=== PATIENT | male | born 1960 | race Caucasian/White ===

== ENCOUNTER 2023-02-02 06:15 | Day surgery (SDC) | payer BC, SELFPAY ==
[2023-02-02] VITALS (14 sets, daily range): BP systolic 113–140; BP diastolic 66–86; PULSE 54–75; RESP 12–16; TEMP 36.2–36.7; O2SAT 92–96; BMI 28.1
[2023-02-02] MEDS: LACTATED RINGERS 1000 ML 1,000 ML 100 ML IV (06:35)
[2023-02-02] MEDS: SODIUM CHLORIDE 0.9 % (FLUSH) 10 ML SYRINGE IVF (07:08)
[2023-02-02] MEDS: CEFAZOLIN 2 GM INJ IVP (07:44)
[2023-02-02] MEDS: HEPARIN 5,000 UNIT/0.5 ML INJ 5000 UNIT SUBCUT (07:45)
--- NOTE | 2023-02-02 08:35 | W.ANESCHARGE ---
Anesthesia Charges Start Date/Time Anesthesia Start Date: 02/02/23 Anesthesia Start Time: 07:33 Stop Date/Time Anesthesia Stop Date: 02/02/23 Anesthesia Stop Time: 09:10
[2023-02-02] MEDS: BUPIVACAINE 0.25% 30 ML INJECTION (08:38)
--- NOTE | 2023-02-02 09:10 | W.ANESCHARGE ---
Anesthesia Charges Start Date/Time Anesthesia Start Date: 02/02/23 Anesthesia Start Time: 07:33 Stop Date/Time Anesthesia Stop Date: 02/02/23 Anesthesia Stop Time: 09:10
--- NOTE | 2023-02-02 09:21 | PM.GSPRC ---
Operative Note Pre-op diagnosis: Incisional hernia Post-op diagnosis: Same Type of Procedure: Open incisional hernia repair with mesh, 2 cm Indications: The patient is a 62 year old male who has an umbilical hernia which occurred at the port site from a prior laparoscopic inguinal hernia repair. This is been present for approximately 10 years. This is becoming more uncomfortable for him and he would like to have this repaired. After discussion of options he agreed to proceed Procedure Description: After discussing the risks and benefits of the procedure, the patient signed informed consent.? The operative site was marked and the patient was brought to the operating room and placed on the operating table in supine position.? Care was taken to pad the patient's pressure points.?? The patient was then intubated by anesthesia.?? The operative site was then prepped and draped in the usual sterile fashion.? A time-out was then performed. Of note, the patient has a history of DVT after surgery and so perioperative heparin was administered along with mechanical prophylaxis in the form of Laci hose and SCDs. A curvilinear incision was made inferior to the umbilicus. Dissection was carried down into the subcutaneous tissue using cautery. The hernia had reduced on its own and the sac was encountered and care was taken to not enter it. Dissection was taken down to the fascia, and the umbilical skin was carefully dissected off of the hernia sac. The hernia sac was moderately sized and redundant and so this was opened and the redundant tissue excised and discarded. As mentioned, the hernia had reduced on its own. The peritoneum was examined. There were no adhesions of bowel or omentum to the peritoneum surrounding the hernia. I then created a preperitoneal space by carefully dissecting the peritoneum away from the fascial edge. This was done with a combination of blunt dissection and dissection with cautery. Once the pocket had been created, I sewed the hernia defect with a running 3-0 Vicryl suture. The hernia opening was 2 cm. For this reason I made the decision to use mesh. A piece of medium Ventralex ST mesh was obtained and placed into the pre peritoneal space. It laid flat. This was secured into place using 2 0 PDS interrupted sutures. The tails were then trimmed and the fascial opening was closed with 0 Nurolon suture in a [id number] fashion. The umbilical skin was redundant and so the excess was excised using a knife. The umbilicus was then reapproximated to the fascia. The skin was then closed with running absorbable suture. A sterile dressing was then applied. The patient was then woken and transported to the recovery area in stable condition. ? The patient tolerated the procedure well. Findings: 2 cm incisional hernia. Implants: Ventralex ST mesh Anesthesia: GETA Surgeon: Nelly Goodman MD Estimated blood loss (mL): 5 Condition: stable Disposition: PACU
== END 2023-02-02 11:00 | disposition home or self-care (01) ==
PROVIDERS: PCP Family Medicine; Visit Provider Surgery
PROC: (CPT 49591; principal; 2023-02-02 07:30)
DX: K43.2 Incisional hernia without obstruction or gangrene (principal)
CPT/HCPCS: 49591; 830; C1781; J0330; J0665; J0690; J1100; J1644; J1885; J2405; J2704; J3010; J7120

== ENCOUNTER 2024-10-31 06:19 | Emergency (ER) | payer BC, SELFPAY ==
[2024-10-31] VITALS (8 sets, daily range): BP systolic 123–150; BP diastolic 84–94; PULSE 62–93; RESP 16–18; TEMP 36.8; O2SAT 93–96; BMI 25.1
--- OUTSIDE RECORDS SUMMARY | 2024-10-31 06:22 | XMS_ITS | Clinical Summary ---
Author Organization [facility] Address [facility] [place] [address] Care Team Providers Care Drum Operator Name Role Phone Maxine Mariano DO Primary Care Provider [phone] Allergies No known active allergies Medications aspirin (Aspirin EC) 81 mg enteric coated tabletIndication s:Acute superficial venous thrombosis of right lower extremity Take 1 Tablet (81 mg) by mouth once daily with a meal. 0 1 Active Graduated Compression StockingsIndicat ions:Acute superficial venous thrombosis of right lower extremity 20-30 mmHg thigh high compression stockings. Wear as directed. 3 Packet 3 1 Active Graduated Compression StockingsIndicat ions:Acute superficial venous thrombosis of right lower extremity 20-30 mmHg knee high compression stockings. Wear as directed. 3 Packet 3 1 Active triamcinolone 0.5% (ARISTOCORT) 0.5 % creamIndications :Chronic eczema Apply topically to affected area(s) three times daily. 15 g 4 Active lisinopriL (PRINIVIL; ZESTRIL) 5 mg tabletIndication s:HTN (hypertension) Take 1 Tablet (5 mg) by mouth once daily. 90 Tablet 3 4 Active benzonatate (TESSALON) 200 mg capsuleIndicatio ns:Acute cough Take 1 Capsule (200 mg) by mouth 3 times daily if needed for Cough. 21 Capsule 5 Active albuterol HFA (PRO-AIR; VENTOLIN; PROVENTIL) 90 mcg/actuation inhalerIndicatio ns:Wheezing,Acut e cough Inhale 1-2 Puffs by mouth every 4 hours if needed for Shortness Of Breath or Wheezing. 3 Each 3 5 Active rosuvastatin (CRESTOR) 20 mg tabletIndication s:More than 50 percent stenosis of left internal carotid artery Take 1 Tablet (20 mg) by mouth at bedtime. 90 Tablet 3 5 Active Active Problems Problem Noted Date Diagnosed Date Primary hypertension 01/13/2023 Overview (01/13/2023): December 2022: On lisinopril since Apr 2022. Acute deep vein thrombosis ( DVT) of distal vein of lower extremity 01/13/2023 Overview (01/18/2023): At time of hernia Surgery for DVT. Then later 2020 thrombophlebitis. December 2022: Basic hypercoagulation work up tests are negative. Varicose veins of bilateral lower extremities with other complications 01/13/2023 Encounters Date Type Department Care Team Description 09/11/2024 3:00 PM CDT Office Visit [facility] at [address] [phone] Neeta Person MD Consult (More than 50 percent stenosis of left internal carotid artery) 09/11/2024 Travel from Last 3 Months Family History Relation Name Status Comments Brother 1 Alive Brother 2 Alive Father Mother Sister 1 Alive Sister 2 Alive Social History Tobacco Use Types Packs/Day Years Used Date Smoking Tobacco: Former Cigarettes Q uit: 1999 Smokeless Tobacco: Never Tobacco Cessation:Counseling Given: Yes Alcohol Use Standard Drinks/Week Comments Yes 0 (1 standard drink = 0.6 oz pur e alcohol) rarely PHQ-2 Answer Date Recorded PHQ-2 TOTAL SCORE 0 01/13/2023 Financial Resource Strain Answer Date R ecorded Difficulty of Paying Living Expenses Not on file 06/19/2021 Difficulty of Paying Living Expenses Not on file 06/19/2021 Sex and Gender Information Value Date Recorded Sex Assigned at Not on file 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 Gender Identity Not on file Sexual Orientation Not on file Obstetrics History Last Filed Vital Signs Vital Sign Reading Time Taken Comments Blood Pressure 116/74 09/11/2024 2:46 PM CDT Pulse 80 09/11/2024 2:46 PM CDT Temperature 37.2 C (98.9 F) 07/18/2024 10:14 AM CHINA DECORATOR Respiratory Rate 16 10/18/2014 9:19 AM CDT Oxygen Saturation 97% 09/11/2024 2:46 PM CDT Inhaled Oxygen Concentration - - Weight 85.4 kg (188 lb 3.2 oz) 09/11/2024 2:46 P M CDT Height 172.7 cm (5' 8) 11/23/2023 9:04 AM CDT Body Mass Index 28.62 11/23/2023 9:04 AM CDT Plan of Treatment Health Maintenance Due Date Last Done Comments Tdap 10/24/1970 Depression screening for age 12+ 1971 HIV for age 15-65 10/24/1974 Hepatitis C screening for ag e 18-79 10/24/1977 Tetanus booster 1979 Colonoscopy through age 75 10/24/2004 Pneumococcal series for age 50+ (1 of 1 - PCV) 10/24/2009 Zoster (shingles) series for age 50+ (1 of 2) 10/24/2009 RSV vaccine for adults or (1 - Risk 60-74 years 1-dose series) 2019 COVID-19 vaccine series ( - 2023- season) 2024 AAA screening age 65-74 10/24/2024 BMI (ht and wt on same day) for age 18+ 11/22/2024 11/23/2023, 10/26/2023, 08/11/2023, Additional history exists Influenza Vaccine (Season Ended) 2025 Lipids for age 45-75 04/28/2027 04/28/2022 Goals Goal Patient Goal Type Associated Problems Recent Progress Patient-Stated? Author BLOOD PRESSURE - Maintains BP less than 140/90 Blood Pressure No Allie Taveras LPN Procedures Procedure Name Priority Date/Time Associated Diagnosis Comments LIPID PANEL W REFLEX MEASURED LDL Routine 04/28/2022 1:49 PM CHINA DECORATOR Lipid screening from Last 3 Months or Most Recently Relevant to Health Maintenance Results * (ABNORMAL) LIPID PANEL W REFLEX MEASURED LDL (04/28/2022 1:49 PM CHINA DECORATOR) CHOLESTEROL,TOTAL 207(H) 100 - 199 mg/dL 04/30/2022 8:31 PM CHINA DECORATOR [facility] TRIGLYCERIDES 144 <150 mg/dL 04/30/2022 8:31 PM CHINA DECORATOR [facility] HDL CHOLESTEROL 47 >40 mg/dL 8:31 PM CHINA DECORATOR [facility] NON-HDL CHOLESTEROL 160(H) <145 mg/dl 04/30/2022 8:31 PM CHINA DECORATOR [facility] CHOL/HDL RATIO 4.40 <4.50 04/30/2022 8:31 PM CHINA DECORATOR [facility] LDL CHOLESTEROL 131(H) <=130 mg/dL 04/30/2022 8:31 PM CHINA DECORATOR [facility] VLDL CHOLESTEROL 29 <=30 mg/dL 04/30/2022 8:31 PM CHINA DECORATOR [facility] PROVIDER ORDERED STATUS RANDOM 04/30/2022 8:31 PM CHINA DECORATOR [facility] Blood BLOOD SPECIMEN / Unknown Venipuncture / Unknown 04/28/2022 1:49 PM CHINA DECORATOR 04/28/2022 1:50 PM CHINA DECORATOR us Maxine Mariano DO CHEMISTRY Final Result [facility] [address] [place] [address], [place] from Last 3 Months or Most Recently Relevant to Health Maintenance Insurance [employer] OF NON-IN-ITS Advance Directives Documents on File Type Date Recorded Patient Parking Ramp Attendant Expl anation Healthcare Directive 08/28/2024 025 Care Teams Drum Operator Relationship Specialty Start Date End Date Maxine Mariano DO [address] [place] [address] PCP - General Family Practice 06/27/24
--- NOTE | 2024-10-31 06:44 | CRLHL7_ITS ---
For Patients: As a result of the Cures Act, medical imaging exams and procedure reports are released immediately into your electronic medical record. You may view this report before your referring provider. If you have questions, please contact your health care provider. INDICATION: Chest pain, not otherwise described. COMPARISON: None available. TECHNIQUE: PA and lateralAP and lateral views of the chest. FINDINGS: Medical Devices: None. Lung Volumes: Adequate inspiration. No significant atelectasis. Lungs: Clear lungs. Pleura and Pleural spaces: No significant pleural effusion. No pneumothorax. Mediastinum: Normal cardiomediastinal silhouette. Bony Thorax and Soft Tissues: Note is made of diffuse osteopenia of the spine and chronic appearing moderate to severe compression deformities of the superior endplates of 3 contiguous midthoracic vertebral bodies on the lateral view. IMPRESSION: No acute findings to explain the clinical history. Note is made of diffuse osteopenia of the spine and chronic appearing moderate to severe compression deformities of the superior endplates of 3 contiguous midthoracic vertebral bodies on the lateral view. Dictated by Mani Jaramillo MD @ 10/31/2024 7:13:22 AM (Electronically Signed)
--- NOTE | 2024-10-31 06:49 | ED.CHESTPAIN ---
HPI - Chest Pain General Date Seen: 10/31/24 <Bartolo Harding MD - Last Filed: 11/01/24 20:23> Chief Complaint: Unspecified Complaint, Adult <Bartolo Harding MD - Last Filed: 11/01/24 20:23> Stated Complaint: Left side pain <Bartolo Harding MD - Last Filed: 11/01/24 20:23> Time Seen by Provider: 10/31/24 06:35 <Bartolo Harding MD - Last Filed: 11/01/24 20:23> Source: patient <Bartolo Harding MD - Last Filed: 11/01/24 20:23> Mode of arrival: ambulatory <Bartolo Harding MD - Last Filed: 11/01/24 20:23> Limitations: no limitations <Bartolo Harding MD - Last Filed: 11/01/24 20:23> History of Present Illness HPI narrative: Patient is a 64-year-old male who comes in with several weeks of intermittent left upper quadrant abdominal pain and chest pain. His history is quite vague. He does not believe the pain has anything to do with meals or acid reflux. It does not necessarily come on with exertion or resolve with rest. He has not found anything that makes the pain any better. He has not found anything that makes the pain any worse. It does not cause nausea, diaphoresis, dyspnea. His risk factors for coronary artery disease include gender, hypertension, hyperlipidemia. He does have some carotid disease and has seen a vascular doctor within the last two months. He denies a history of exertional chest pain. He does a physical job working at [employer]. No pain with deep inspiration. Pain is never kept him from doing anything. He has never had a stress test. <Bartolo Harding MD - Last Filed: 11/01/24 20:23> Related Data Home Medications: Home Medications ?Medication ?Instructions ?Recorded ?Confirmed aspirin 81 mg capsule 81 mg PO DAILY 02/01/23 10/31/24 lisinopril 5 mg tablet 5 mg feeding tube QDAY 02/01/23 10/31/24 triamcinolone acetonide 0.1 % 1 applic topical TID 02/01/23 02/02/23 lotion rosuvastatin 20 mg tablet 20 mg PO QPM 10/31/24 10/31/24 Previous Rx's ?Medication ?Instructions ?Recorded hydrocodone 5 mg-acetaminophen 325 1 - 2 tab PO Q6H PRN Pain #20 tabs 02/02/23 mg tablet <Bartolo Harding MD - Last Filed: 11/01/24 20:23> Allergies/Adverse Reactions: Allergies Allergy/AdvReac Type Severity Reaction Status Date / Time No Known Drug Allergies Allergy Verified 10/31/24 06:26 <Bartolo Harding MD - Last Filed: 11/01/24 20:23> Review of Systems Narrative Apparently is eye doctor saw something in his eye that led to a evaluation of his carotids and visit with vascular surgeon. No intervention was done and a six-month follow-up is planned. Review of systems is outlined above otherwise noted to be negative. <Bartolo Harding MD - Last Filed: 11/01/24 20:23> [facility] Medical History: Medical History (Updated 10/31/24 @ 08:59 by Yassine Seymour MD) Varicose veins of bilateral lower extremities with pain ?I83.813 - Varicose veins of bilateral lower extremities with pain (ICD-10) HTN (hypertension) ?I10 - Essential (primary) hypertension (ICD-10) DVT (deep venous thrombosis) ?I82.409 - Acute embolism and thrombosis of unspecified deep veins of unspecified lower extremity (ICD-10) <Bartolo Harding MD - Last Filed: 11/01/24 20:23> Social History: Social History Smoking Status: Never smoker Do you use any of these nicotine containing products: None Second hand tobacco smoke exposure: No How often do you have a drink containing alcohol: never How often do you have six or more drinks on one occasion: Never AUDIT-C Alcohol total score: 0 Non-prescribed substance use: denies use Caffeine: No <Bartolo Harding MD - Last Filed: 11/01/24 20:23> Exam Narrative Exam Narrative: Vitals noted. HEENT: Conjunctiva clear. Tympanic membranes are pearly white bilaterally. Posterior pharynx is clear without erythema or exudate. Neck is supple without adenopathy, thyromegaly, carotid bruit. Lungs: Clear to auscultation in all [place]. No wheezes, rales, rhonchi. Heart: Regular rate and rhythm without murmur. No chest wall tenderness. Abdomen: Soft with very mild epigastric tenderness. No guarding, rigidity, rebound. Bowel sounds are normal. No palpable masses. Extremities: No cyanosis or edema. Good distal pulses. Skin: No abnormalities noted of the exposed skin. Neurologic: Awake, alert, fully oriented. Neurologic exam is nonfocal. <Bartolo Harding MD - Last Filed: 11/01/24 20:23> Const Vital Signs, click to edit/add: Vital Signs - 24 hr 10/31/24 06:20 10/31/24 06:24 10/31/24 08:10 Temperature 98.2 F Pulse Rate 72 Pulse Rate [Pulse Oximeter] 93 Respiratory Rate 16 Respiratory Rate [Left Side/Chest] 18 Blood Pressure Blood Pressure [Left Upper Arm] 150/94 H Pulse Oximetry 95 94 Oxygen Delivery Method Room Air 10/31/24 08:15 10/31/24 08:16 10/31/24 08:30 Temperature Pulse Rate 62 68 74 Pulse Rate [Pulse Oximeter] Respiratory Rate Respiratory Rate [Left Side/Chest] Blood Pressure 127/84 Blood Pressure [Left Upper Arm] Pulse Oximetry 93 96 96 Oxygen Delivery Method 10/31/24 08:31 10/31/24 08:45 Temperature Pulse Rate 64 68 Pulse Rate [Pulse Oximeter] Respiratory Rate 16 Respiratory Rate [Left Side/Chest] Blood Pressure 123/86 Blood Pressure [Left Upper Arm] Pulse Oximetry 95 96 Oxygen Delivery Method <Bartolo Harding MD - Last Filed: 11/01/24 20:23> Vital Signs - 24 hr 10/31/24 06:20 10/31/24 06:24 10/31/24 08:10 Temperature 98.2 F Pulse Rate 72 Pulse Rate [Pulse Oximeter] 93 Respiratory Rate 16 Respiratory Rate [Left Side/Chest] 18 Blood Pressure Blood Pressure [Left Upper Arm] 150/94 H Pulse Oximetry 95 94 Oxygen Delivery Method Room Air 10/31/24 08:15 10/31/24 08:16 10/31/24 08:30 Temperature Pulse Rate 62 68 74 Pulse Rate [Pulse Oximeter] Respiratory Rate Respiratory Rate [Left Side/Chest] Blood Pressure 127/84 Blood Pressure [Left Upper Arm] Pulse Oximetry 93 96 96 Oxygen Delivery Method 10/31/24 08:31 10/31/24 08:45 Temperature Pulse Rate 64 68 Pulse Rate [Pulse Oximeter] Respiratory Rate 16 Respiratory Rate [Left Side/Chest] Blood Pressure 123/86 Blood Pressure [Left Upper Arm] Pulse Oximetry 95 96 Oxygen Delivery Method <Yassine Seymour MD - Last Filed: 10/31/24 08:58> Course Course ED Course: Patient seen and examined. He is in no distress. Chest x-ray and labs are ordered. <Bartolo Harding MD - Last Filed: 11/01/24 20:23> Patient seen and examined. He is in no distress. Chest x-ray and labs are ordered.During my evaluation I considered multiple differential diagnosis including life-threatening CAD, mi, pulmonary embolism, pneumothorax, pneumonia any aortic dissection. Other considerations include pericarditis, myocarditis chest wall pain, GERD, pancreatitis, cholecystitis, esophagitis, esophageal rupture, gastritis or muscle skeletal. <Yassine Seymour MD - Last Filed: 10/31/24 08:58> Reevaluation(s) Time of Reevaluation #1: 07:55 <Yassine Seymour MD - Last Filed: 10/31/24 08:58> Reevaluation #1: CBC showed no anemia or leukocytosis, troponin I negative, comprehensive metabolic panel showed normal electrolytes, renal function and LFTs, normal lipase, XR chest PA and lateral showed no acute cardiopulmonary process, D-dimer mildly elevated at 0.75, patient does have a history of deep vein thrombosis after a hernia repair, atypical presentation for pulmonary embolism we will obtain CT chest angiogram of the pulmonary arteries with IV contrast, to add ECG. patient to be given 15 mg IV Toradol for his atypical chest pain <Yassine Seymour MD - Last Filed: 10/31/24 08:58> Time of Reevaluation #2: 08:56 <Yassine Seymour MD - Last Filed: 10/31/24 08:58> Reevaluation #2: IMPRESSION: No pulmonary embolism. Minimal bibasilar atelectasis. There is a 4 millimeter nodule along the right minor fissure, which may represent an intra-fissural lymph node. If this patient is low risk, no further follow-up is indicated. In a high-risk patient, repeat CT in 12 months can be considered. patient is feeling better after above care given, patient was reassured on normal imaging results, EKG showed a normal sinus rhythm, low-voltage QRS, no acute ST changes noted. will plan to discharge, a follow-up with his primary care provider over the next 7-10 days, Reasons return were given. <Yassine Seymour MD - Last Filed: 10/31/24 08:58> Vital Signs Vital signs: Initial Vital Signs Respiratory Rate 18 10/31/24 06:20 Vital Signs Respiratory Rate 18 10/31/24 06:20 Temperature 98.2 F 10/31/24 06:24 Pulse Rate 68 10/31/24 08:45 Respiratory Rate 16 10/31/24 08:31 Blood Pressure 123/86 10/31/24 08:31 Pulse Oximetry 96 10/31/24 08:45 Oxygen Delivery Method Room Air 10/31/24 06:24 <Bartolo Harding MD - Last Filed: 11/01/24 20:23> Initial Vital Signs Respiratory Rate 18 10/31/24 06:20 Vital Signs Respiratory Rate 18 10/31/24 06:20 Temperature 98.2 F 10/31/24 06:24 Pulse Rate 68 10/31/24 08:45 Respiratory Rate 16 10/31/24 08:31 Blood Pressure 123/86 10/31/24 08:31 Pulse Oximetry 96 10/31/24 08:45 Oxygen Delivery Method Room Air 10/31/24 06:24 <Yassine Seymour MD - Last Filed: 10/31/24 08:58> Medications Administered Medications: Discontinued Medications Generic Name Dose Route Start Last Admin Trade Name Freq PRN Reason Stop Dose Admin Ketorolac Tromethamine 15 mg 10/31/24 07:57 10/31/24 08:08 Ketorolac 15 Mg/Ml Inj IVP 10/31/24 07:58 15 mg ONCE ONE Administration <Bartolo Harding MD - Last Filed: 11/01/24 20:23> Discontinued Medications Generic Name Dose Route Start Last Admin Trade Name Freq PRN Reason Stop Dose Admin Ketorolac Tromethamine 15 mg 10/31/24 07:57 10/31/24 08:08 Ketorolac 15 Mg/Ml Inj IVP 10/31/24 07:58 15 mg ONCE ONE Administration <Yassine Seymour MD - Last Filed: 10/31/24 08:58> MDM - Chest Pain Lab Data Labs: Lab Results 10/31/24 Range/Units 06:50 WBC 3.97 L (4.50-11.00) K/uL RBC 4.45 (4.30-5.90) m/uL Hgb 14.2 (13.5-17.5) gm/dL Hct 41.6 (37.0-53.0) % MCV 94 (80-100) fL MCH 32 (26-34) pg MCHC 34 (32-36) gm/dL RDW Coeff of Charles 12.8 (11.5-15.5) % Plt Count 182 (140-440) K/uL Neut % (Auto) 47.4 (42.0-72.0) % Lymph % (Auto) 35.0 (20-44) % [place] % (Auto) 11.8 H (0.0-11.0) % Eos % (Auto) 5.3 (0.0-7.0) % Baso % (Auto) 0.5 (0.0-3.0) % Neut # (Auto) 1.90 (1.7-7.0) K/uL Lymph # (Auto) 1.40 (0.90-2.90) K/uL [place] # (Auto) 0.50 (0.00-0.90) K/UL Eos # (Auto) 0.20 (0.00-0.50) K/uL Baso # (Auto) 0.00 (0.00-0.30) K/uL Abs Immat Gran (auto) 0.00 (0.00-0.30) K/uL Imm/Tot Granulo (auto) 0.0 % D-Dimer Quant (PE/DVT) 0.75 H (0.00-0.50) ug/ml Sodium 136 (135-149) mmol/L Potassium 4.1 (3.6-5.1) mmol/L Chloride 104 (96-114) mmol/L Carbon Dioxide 23 (20-32) mmol/L Anion Gap 9 (7-15) mEq/L BUN 26 (7-30) mg/dL Creatinine 1.4 (0.5-1.5) mg/dL Estimated Creat Clear 50.89 Estimated GFR 56 ml/min Glucose 105 (60-115) mg/dL Calcium 9.2 (8.4-10.6) mg/dL Total Bilirubin 0.9 (0.1-1.5) mg/dL Direct Bilirubin 0.2 (0.0-0.5) mg/dL AST 29 (12-35) U/L ALT 19 (4-50) U/L Alkaline Phosphatase 58 (40-150) U/L Troponin I < 0.01 (0.01-0.04) ng/mL Total Protein 6.7 (6.0-8.3) g/dL Albumin 4.1 (3.3-5.0) g/dL Lipase 108 (23-300) U/L <Bartolo Harding MD - Last Filed: 11/01/24 20:23> Lab Results 10/31/24 Range/Units 06:50 WBC 3.97 L (4.50-11.00) K/uL RBC 4.45 (4.30-5.90) m/uL Hgb 14.2 (13.5-17.5) gm/dL Hct 41.6 (37.0-53.0) % MCV 94 (80-100) fL MCH 32 (26-34) pg MCHC 34 (32-36) gm/dL RDW Coeff of Charles 12.8 (11.5-15.5) % Plt Count 182 (140-440) K/uL Neut % (Auto) 47.4 (42.0-72.0) % Lymph % (Auto) 35.0 (20-44) % [place] % (Auto) 11.8 H (0.0-11.0) % Eos % (Auto) 5.3 (0.0-7.0) % Baso % (Auto) 0.5 (0.0-3.0) % Neut # (Auto) 1.90 (1.7-7.0) K/uL Lymph # (Auto) 1.40 (0.90-2.90) K/uL [place] # (Auto) 0.50 (0.00-0.90) K/UL Eos # (Auto) 0.20 (0.00-0.50) K/uL Baso # (Auto) 0.00 (0.00-0.30) K/uL Abs Immat Gran (auto) 0.00 (0.00-0.30) K/uL Imm/Tot Granulo (auto) 0.0 % D-Dimer Quant (PE/DVT) 0.75 H (0.00-0.50) ug/ml Sodium 136 (135-149) mmol/L Potassium 4.1 (3.6-5.1) mmol/L Chloride 104 (96-114) mmol/L Carbon Dioxide 23 (20-32) mmol/L Anion Gap 9 (7-15) mEq/L BUN 26 (7-30) mg/dL Creatinine 1.4 (0.5-1.5) mg/dL Estimated Creat Clear 50.89 Estimated GFR 56 ml/min Glucose 105 (60-115) mg/dL Calcium 9.2 (8.4-10.6) mg/dL Total Bilirubin 0.9 (0.1-1.5) mg/dL Direct Bilirubin 0.2 (0.0-0.5) mg/dL AST 29 (12-35) U/L ALT 19 (4-50) U/L Alkaline Phosphatase 58 (40-150) U/L Troponin I < 0.01 (0.01-0.04) ng/mL Total Protein 6.7 (6.0-8.3) g/dL Albumin 4.1 (3.3-5.0) g/dL Lipase 108 (23-300) U/L <Yassine Seymour MD - Last Filed: 10/31/24 08:58> Discharge Plan Discharge Clinical Impression: Atypical chest pain, Pulmonary nodule <Bartolo Harding MD - Last Filed: 11/01/24 20:23> Patient Disposition: Home, Self-Care <Bartolo Harding MD - Last Filed: 11/01/24 20:23> Condition: Improved <Bartolo Harding MD - Last Filed: 11/01/24 20:23> Instructions: Chest Pain (ED) <Bartolo Harding MD - Last Filed: 11/01/24 20:23> Additional Instructions: To follow up with primary care provider in the next 7-10 days, Motrin and or Tylenol if pain returns every 6 hours. <Bartolo Harding MD - Last Filed: 11/01/24 20:23> Activity Level: No Restrictions <Bartolo Harding MD - Last Filed: 11/01/24 20:23> No Restrictions <Yassine Seymour MD - Last Filed: 10/31/24 08:58> Prescriptions: No Action aspirin 81 mg capsule 81 mg PO DAILY lisinopril 5 mg tablet 5 mg feeding tube QDAY triamcinolone acetonide 0.1 % lotion 1 applic topical TID hydrocodone-acetaminophen 5-325 mg Tablet 1 - 2 tab PO Q6H PRN (Reason: Pain) Qty: 20 0RF rosuvastatin 20 mg tablet 20 mg PO QPM <Bartolo Harding MD - Last Filed: 11/01/24 20:23> Follow Up/Referrals: Phillip Jarquin MD [Primary Care Provider] - <Bartolo Harding MD - Last Filed: 11/01/24 20:23> Stand Alone Forms: MyHealth Info Instructions <Bartolo Harding MD - Last Filed: 11/01/24 20:23>
[2024-10-31 07:00] LABS: Basophils Percent Auto 0.5 % (0.0-3.0); Eosinophils Percent Auto 5.3 % (0.0-7.0); Hematocrit 41.6 % (37.0-53.0); Hemoglobin* 14.2 gm/dL (13.5-17.5); Mean Corpuscular HGB Conc 34 gm/dL (32-36); Mean Corpuscular Hemoglobin 32 pg (26-34); Mean Corpuscular Volume 94 fL (80-100); Monocytes Percent Auto 11.8 % (0.0-11.0); Neutrophils Percent Auto 47.4 % (42.0-72.0); Platelet Count* 182 K/uL (140-440); RDW Coefficient of Variation % 12.8 % (11.5-15.5); Red Blood Count 4.45 m/uL (4.30-5.90); White Blood Count* 3.97 K/uL (4.50-11.00)
--- OUTSIDE RECORDS SUMMARY | 2024-10-31 07:07 | XMS_ITS | Clinical Summary ---
Author Organization [facility] Address [facility] [place] [address] Care Team Providers Care Coach Mechanic Name Role Phone Maxine Mariano DO Primary Care Provider [phone] Allergies No known active allergies Medications aspirin [...] Description 09/11/2024 3:00 PM CDT Office Visit [facility] at [address] [id number] Neeta Person MD Consult (More than 50 [...] on file Legal Sex Male 5:26 AM [employer] Gender Identity Not on file Sexual Orientation Not on file Obstetrics History Last Filed Vital Signs Vital Sign Reading Time Taken Comments Blood Pressure 116/74 09/11/2024 2:46 PM CDT Pulse 80 09/11/2024 2:46 PM CDT Temperature 37.2 C (98.9 F) 07/18/2024 10:14 AM [employer] Respiratory Rate 16 10/18/2014 9:19 AM CDT [...] REFLEX MEASURED LDL Routine 04/28/2022 1:49 PM [employer] Lipid screening from Last 3 Months or Most Recently Relevant to Health Maintenance Results * (ABNORMAL) LIPID PANEL W REFLEX MEASURED LDL (04/28/2022 1:49 PM [employer]) CHOLESTEROL,TOTAL 207(H) 100 - 199 mg/dL 04/30/2022 8:31 PM [employer] [facility] TRIGLYCERIDES 144 <150 mg/dL 04/30/2022 8:31 PM [employer] [facility] HDL CHOLESTEROL 47 >40 mg/dL 8:31 PM [employer] [facility] NON-HDL CHOLESTEROL 160(H) <145 mg/dl 04/30/2022 8:31 PM [employer] [facility] CHOL/HDL RATIO 4.40 <4.50 04/30/2022 8:31 PM [employer] [facility] LDL CHOLESTEROL 131(H) <=130 mg/dL 04/30/2022 8:31 PM [employer] [facility] VLDL CHOLESTEROL 29 <=30 mg/dL 04/30/2022 8:31 PM [employer] [facility] PROVIDER ORDERED STATUS RANDOM 04/30/2022 8:31 PM [employer] [facility] Blood BLOOD SPECIMEN / Unknown Venipuncture / Unknown 04/28/2022 1:49 PM [employer] 04/28/2022 1:50 PM [employer] us Maxine Mariano DO CHEMISTRY Final Result [facility] [address] [place] [address], [place] from Last 3 Months or Most Recently Relevant to Health Maintenance Insurance [employer] OF [employer]-TX-ITS Advance Directives Documents on File Type Date Recorded Patient Director Perioperative Expl anation Healthcare Directive 08/28/2024 025 Care Teams Coach Mechanic Relationship Specialty Start Date End Date Maxine Mariano DO [address] [place] [address] PCP - General Family Practice 06/27/24
[2024-10-31 07:13] LABS: Albumin* 4.1 g/dL (3.3-5.0); Chloride* 104 mmol/L (96-114); Sodium* 136 mmol/L (135-149)
[2024-10-31 07:14] LABS: Potassium* 4.1 mmol/L (3.6-5.1)
[2024-10-31 07:16] LABS: Alanine Aminotransferase* 19 U/L (4-50); Anion Gap 9 mEq/L (7-15); Aspartate Amino Transferase* 29 U/L (12-35); Blood Urea Nitrogen* 26 mg/dL (7-30); Carbon Dioxide* 23 mmol/L (20-32); Creatinine* 1.4 mg/dL (0.5-1.5); D Dimer Quantitative* 0.75 ug/ml (0.00-0.50); Est. Creatinine Clearance* 50.89; Estimated Glomerular Filt Rate 56 ml/min; Total Protein* 6.7 g/dL (6.0-8.3)
[2024-10-31 07:17] LABS: Alkaline Phosphatase* 58 U/L (40-150); Bilirubin Direct* 0.2 mg/dL (0.0-0.5); Bilirubin Total* 0.9 mg/dL (0.1-1.5); Calcium* 9.2 mg/dL (8.4-10.6); Glucose* 105 mg/dL (60-115); Lipase* 108 U/L (23-300)
[2024-10-31 07:19] LABS: Slide Review Reflex No
[2024-10-31 07:29] LABS: Troponin I* < 0.01 ng/mL (0.01-0.04)
--- NOTE | 2024-10-31 07:35 | CRLHL7_ITS ---
For Patients: As a result of the Century Cures Act, medical imaging exams and procedure reports are released immediately into your electronic medical record. You may view this report before your referring provider. If you have questions, please contact your health care provider. INDICATION: Elevated D-dimer TECHNIQUE: CT chest PE was acquired with 100 cc Omnipaque 350 IV contrast. COMPARISON: None. FINDINGS: Thyroid: Unremarkable. Heart and vasculature: Contrast opacification of the pulmonary arterial tree is adequate. No sign of pulmonary embolism. Heart size is normal. Minimal calcification of the LAD. Thoracic aorta and pulmonary artery are normal in caliber. Lungs and pleura: There is a 4 millimeter nodule along the right minor fissure (6/82). No pleural effusions, pleural thickening, or pneumothorax. Lymph nodes/mediastinum: No mediastinal, hilar, or axillary adenopathy. Chest wall: No masses. Upper abdomen: Mild cortical scarring of the left kidney. Bones: Mild degenerative disease of the spine. IMPRESSION: No pulmonary embolism. Minimal bibasilar atelectasis. There is a 4 millimeter nodule along the right minor fissure, which may represent an intra-fissural lymph node. If this patient is low risk, no further follow-up is indicated. In a high-risk patient, repeat CT in 12 months can be considered. Please note that all CT scans at this facility use dose modulation, iterative reconstruction, and/or weight-based dosing when appropriate to reduce radiation dose to as low as reasonably achievable. Dictated by Izzy Alanis MD @ 10/31/2024 8:31:29 AM (Electronically Signed)
[2024-10-31] MEDS: KETOROLAC 15 MG/ML inj IVP (08:08)
== END 2024-10-31 09:21 | disposition home or self-care (01) ==
PROVIDERS: Family Medicine; Emergency Provider Student in an Organized Health Care Education/Training Program; PCP Family Medicine
DX: R07.9 Chest pain, unspecified (principal); R91.1 Solitary pulmonary nodule
CPT/HCPCS: 36415; 71046; 71275; 80048; 80076; 83690; 84484; 85025; 85379; 93005; 96374; 99283; 99284; 99285; J1885; Q9967